=== PATIENT | female | born 1995 | race African-American/Black ===

== ENCOUNTER 2024-07-14 11:28 | Emergency (ER) | payer OTHER ==
[~2024-07-14] VITALS: Ht 162.6 cm; Wt 49.4 kg
[2024-07-14 11:47] VITALS: O2SAT 100
[2024-07-14] MEDS ORDERED: IBUPROFEN 400MG TABLET PO ONE (13:00)
[2024-07-14] MEDS ORDERED: DICYCLOMINE HCL 10MG CAPSULE PO ONE (13:00)
[2024-07-14 13:05] LABS: CLARITY URINE CLOUDY (CLEAR); COLOR URINE YELLOW (YELLOW); GLUCOSE URINE NEGATIVE (NEGATIVE); KETONES URINE NEGATIVE (NEGATIVE); LEUKOCYTE ESTERASE URINE NEGATIVE (NEGATIVE); NITRITE URINE NEGATIVE (NEGATIVE); OCCULT BLOOD URINE NEGATIVE (NEGATIVE); PH URINE 7.5 (4.5-8.0); PROTEIN URINE TRACE (NEGATIVE); SPECIFIC GRAVITY URINE 1.017 (1.005-1.030)
[2024-07-14 13:15] LABS: MUCUS URINE 2+ /lpf (< = 2+); SQUAMOUS EPITHELIAL CELL URINE 2+ /lpf (RARE/1+)
[2024-07-14 13:17] LABS: CHLORIDE 106 mEq/L (98-107); POTASSIUM 3.7 mEq/L (3.5-5.1); SODIUM 140 mEq/L (136-145)
[2024-07-14 13:17] LABS: BACTERIA URINE TRACE; RBC URINE 0-2 /hpf (0-2); WBC URINE 0-2 /hpf (0-2)
[2024-07-14 13:18] LABS: CARBON DIOXIDE 29 mEq/L (21-32)
[2024-07-14 13:20] LABS: BASOPHILS % 0.8 % (0.0-2.0); DIFFERENTIAL COMMENT 0; EOSINOPHILS % 2.5 % (0.0-5.0); HEMATOCRIT. 41.6 % (36.0-48.0); HEMOGLOBIN. 14.2 g/dL (12.0-16.0); LYMPHOCYTES % 30.6 % (20.0-50.0); MEAN CORPUSCULAR HEMOGLOBIN 34.2 pg (28.0-32.0); MEAN CORPUSCULAR HGB CONC 34.1 g/dL (31.0-37.0); MEAN CORPUSCULAR VOLUME 100.4 fL (81.0-99.0); MONOCYTES % 12.5 % (2.0-8.0); NEUTROPHILS % 53.6 % (40.0-76.0); PLATELET 205 x1000/uL (130-400); RED BLOOD CELL COUNT 4.14 mill/uL (4.2-5.4); RED CELL DISTRIBUTION WIDTH 13.5 % (11.6-14.6); WHITE BLOOD COUNT 4.7 x1000/uL (4.5-11.0)
[2024-07-14 13:23] LABS: CREATININE 0.9 mg/dL (0.6-1.0); GLUCOSE 79 mg/dL (70-105); UREA NITROGEN BLOOD 8 mg/dL (9-23)
[2024-07-14 13:25] LABS: ALANINE AMINOTRANSFERASE 19 IU/L (10-49); ALBUMIN 4.8 g/dL (3.2-4.8); ASPARTATE AMINOTRANSFERASE 24 IU/L (<34); BILIRUBIN DIRECT 0.1 mg/dL (<=3.0); BILIRUBIN TOTAL 0.5 mg/dL (0.1-1.0); PROTEIN TOTAL 7.9 g/dL (6.0-8.3)
[2024-07-14] MEDS ORDERED: HYDR-4001 MT (14:20)
[2024-07-14] MEDS: DICYCLOMINE HCL 10MG CAPSULE PO NR (14:31)
[2024-07-14] MEDS: IBUPROFEN 400MG TABLET PO NR (14:32)
[2024-07-14 14:38] VITALS: BP 110/58; PULSE 80; RESP 16; TEMP 36.89184; O2SAT 100
== END 2024-07-14 14:39 | disposition home or self-care (01) ==
LOC: ER 11:48
DX: R10.9 Unspecified abdominal pain (principal)
CPT/HCPCS: 36415; 80048; 80076; 81003; 81025; 85025; 99283